=== PATIENT | female | born 1945 | race Caucasian/White ===

== ENCOUNTER → 2019-05-07 14:42 | Outpatient (BNVA) | payer MEDICARE, OTHER, SELFPAY | PROVIDERS: Family Provider Family Medicine; PCP Family Medicine; Visit Provider Internal Medicine Rheumatology | DX: M05.9 Rheumatoid arthritis with rheumatoid factor, unspecified (principal); M17.0 Bilateral primary osteoarthritis of knee; Z79.899 Other long term (current) drug therapy; M19.041 Primary osteoarthritis, right hand; M19.042 Primary osteoarthritis, left hand; E11.9 Type 2 diabetes mellitus without complications | CPT/HCPCS: 99214 ==

== ENCOUNTER → 2019-06-05 09:41 | Outpatient (BNVA) | payer MEDICARE, OTHER, SELFPAY | PROVIDERS: Family Provider Family Medicine; PCP Nurse Practitioner Family; Visit Provider Internal Medicine Rheumatology | DX: M05.9 Rheumatoid arthritis with rheumatoid factor, unspecified (principal); M15.4 Erosive (osteo)arthritis; Z79.899 Other long term (current) drug therapy; I10 Essential (primary) hypertension | CPT/HCPCS: 99214 ==

== ENCOUNTER 2020-02-23 06:00 | Outpatient (RCR) | payer MEDICARE, OTHER, SELFPAY | END 2020-03-08 23:59 | disposition home or self-care (01) | LOC: MPT 06:00 | PROVIDERS: Family Provider Family Medicine; PCP Nurse Practitioner Family; Referring Provider Student in an Organized Health Care Education/Training Program; Visit Provider Student in an Organized Health Care Education/Training Program | DX: Z47.1 Aftercare following joint replacement surgery (principal); Z96.651 Presence of right artificial knee joint | CPT/HCPCS: 97032; 97110; 97140; 97161; G0283 ==

== ENCOUNTER → 2021-09-19 09:52 | Outpatient (BNVA) | payer MEDICARE, OTHER, SELFPAY | PROVIDERS: Family Provider Family Medicine; PCP Nurse Practitioner Family; Visit Provider Internal Medicine Cardiovascular Disease | DX: I10 Essential (primary) hypertension (principal); E11.9 Type 2 diabetes mellitus without complications; M05.9 Rheumatoid arthritis with rheumatoid factor, unspecified; M17.0 Bilateral primary osteoarthritis of knee; L40.0 Psoriasis vulgaris; Z79.84 Long term (current) use of oral hypoglycemic drugs | CPT/HCPCS: 99204 ==

== ENCOUNTER → 2021-11-21 10:38 | Outpatient (BNVA) | payer MEDICARE, OTHER, SELFPAY | PROVIDERS: Family Provider Family Medicine; PCP Nurse Practitioner Family; Visit Provider Internal Medicine Cardiovascular Disease | DX: I10 Essential (primary) hypertension (principal); E11.8 Type 2 diabetes mellitus with unspecified complications; Z79.84 Long term (current) use of oral hypoglycemic drugs; M05.9 Rheumatoid arthritis with rheumatoid factor, unspecified; M17.0 Bilateral primary osteoarthritis of knee; L40.0 Psoriasis vulgaris | CPT/HCPCS: 99214 ==

== ENCOUNTER 2021-12-28 08:09 | Outpatient (CLI) | payer MEDICARE, OTHER, SELFPAY ==
--- NOTE | 2021-12-28 08:00 | USCV_ITS ---
Sidra Kline Age: 76 Gender: F : 1945 Exam Date: 12/28/2021 08:38 Ordering Phys: Gisela Davila MD ([email or web address]) Technologist: Exam [place] [facility] [place]: CHEST PAIN BP: 140 / 84 HR: 59 Rhythm: Sinus Technical Quality: Adequate MEASUREMENTS (Male / Female) Normal Values 2D ECHO LV Diastolic Diameter PLAX 3.1 cm 4.2 - 5.9 / 3.9 - 5.3 cm LV Systolic Diameter PLAX 2.0 cm IVS Diastolic Thickness 1.8 cm 0.6 - 1.0 / 0.6 - 0.9 cm IVS Systolic Thickness 1.7 cm LVPW Diastolic Thickness 1.8 cm 0.6 - 1.0 / 0.6 - 0.9 cm LVPW Systolic Thickness 2.0 cm LVOT Diameter 2.0 cm LV Ejection Fraction 2D Teich 67.0 % LV Ejection Fraction MOD 2C 63.9 % LV Ejection Fraction 2C AL 66.3 % LA Diameter 3.7 cm IVC Diameter 1.0 cm M-MODE Aortic Annulus Diameter 3.3 cm LA Ao Ratio MM 1.2 MV E Point Septal Separation 0.9 cm DOPPLER AV Peak Velocity 172.0 cm/s LVOT Peak Velocity 121.0 cm/s AV Area Cont Eq vti 2.1 cm squared AV Area Cont Eq pk 2.3 cm squared MV Area PHT 5.0 cm squared Mitral E to A Ratio 0.9 MV E' Velocity 52.0 cm/s Mitral E to MV E' Ratio 12.7 Mitral E to LV E' Lateral Ratio 13.2 Mitral E to LV E' Septal Ratio 12.3 TR Peak Velocity 364.3 cm/s TR Peak Gradient 53.1 mmHg TV Peak E Velocity 100.0 cm/s Right Atrial Pressure 3.0 mmHg Pulmonary Artery Systolic Pressu 56.1 mmHg RV Acceleration Time 0.1 s FINDINGS Left Ventricle Normal left ventricular size and systolic function with no regional wall motion abnormalities. Left ventricular ejection fraction is estimated at 65 %. Normal diastolic function. Right Ventricle Normal right ventricular size and systolic function. Right ventricular systolic pressure 30 mmHg. Right Atrium Normal right atrial size. Left Atrium Normal left atrial size. Mitral Valve Mildly thickened mitral valve. No mitral valve stenosis. Trace mitral valve regurgitation. Aortic Valve Aortic valve not well visualized. No aortic valve stenosis. No aortic valve regurgitation. Tricuspid Valve Structurally normal tricuspid valve. Mild tricuspid valve regurgitation. Pulmonic Valve Structurally normal pulmonic valve. No pulmonary valve stenosis. No pulmonary valve regurgitation. Pericardium No pericardial effusion. Aorta Normal size aortic root. IVC Normal IVC dimension with >50% respiratory change of the inferior vena cava. CONCLUSIONS 1. Normal left ventricular size and systolic function with no regional wall motion abnormalities. Left ventricular ejection fraction is estimated at 65 %. Normal diastolic function. 2. Normal right ventricular size and systolic function. 3. Mild tricuspid valve regurgitation. 4. Pulmonary artery pressure estimated at 30 mmHg. 5. No prior similar studies to compare. Gisela Davila MD (Electronically Signed) Final Date: 29 December 2021 12:10 S
== END 2021-12-28 08:10 | disposition home or self-care (01) ==
LOC: RAD 08:13
PROVIDERS: PCP Nurse Practitioner Family; Visit Provider Internal Medicine Cardiovascular Disease
DX: R06.02 Shortness of breath (principal); R07.9 Chest pain, unspecified; I07.1 Rheumatic tricuspid insufficiency
CPT/HCPCS: 93306

== ENCOUNTER → 2022-05-22 10:56 | Outpatient (BNVA) | payer MEDICARE, OTHER, SELFPAY | PROVIDERS: PCP Nurse Practitioner Family; Visit Provider Internal Medicine Cardiovascular Disease | DX: I10 Essential (primary) hypertension (principal) | CPT/HCPCS: 99214; Q3014 ==

== ENCOUNTER → 2022-08-15 09:23 | Outpatient (BNVA) | payer MEDICARE, OTHER, SELFPAY | PROVIDERS: PCP Nurse Practitioner Family; Visit Provider Nurse Practitioner Family | DX: I96 Gangrene, not elsewhere classified (principal); L97.812 Non-pressure chronic ulcer of other part of right lower leg with fat layer exposed | CPT/HCPCS: 97597; 99213; A6212 ==

== ENCOUNTER → 2022-08-22 08:42 | Outpatient (BNVA) | payer MEDICARE, OTHER, SELFPAY | PROVIDERS: PCP Nurse Practitioner Family; Visit Provider Nurse Practitioner Family | DX: E11.622 Type 2 diabetes mellitus with other skin ulcer (principal); I96 Gangrene, not elsewhere classified; L97.819 Non-pressure chronic ulcer of other part of right lower leg with unspecified severity | CPT/HCPCS: 97597; A6212 ==

== ENCOUNTER → 2022-08-31 08:55 | Outpatient (BNVA) | payer MEDICARE, OTHER, SELFPAY | PROVIDERS: PCP Nurse Practitioner Family; Visit Provider Nurse Practitioner Family | DX: E11.622 Type 2 diabetes mellitus with other skin ulcer (principal); I96 Gangrene, not elsewhere classified; L97.919 Non-pressure chronic ulcer of unspecified part of right lower leg with unspecified severity | CPT/HCPCS: 97597; A6212 ==

== ENCOUNTER → 2022-09-07 09:53 | Outpatient (BNVA) | payer MEDICARE, OTHER, SELFPAY | PROVIDERS: PCP Nurse Practitioner Family; Visit Provider Nurse Practitioner Family | DX: I96 Gangrene, not elsewhere classified (principal); E11.622 Type 2 diabetes mellitus with other skin ulcer; L97.819 Non-pressure chronic ulcer of other part of right lower leg with unspecified severity | CPT/HCPCS: 97597; A6212 ==

== ENCOUNTER → 2022-09-14 09:42 | Outpatient (BNVA) | payer MEDICARE, OTHER, SELFPAY | PROVIDERS: PCP Nurse Practitioner Family; Visit Provider Nurse Practitioner Family | DX: I96 Gangrene, not elsewhere classified (principal); E11.622 Type 2 diabetes mellitus with other skin ulcer; L97.811 Non-pressure chronic ulcer of other part of right lower leg limited to breakdown of skin | CPT/HCPCS: 97597 ==

== ENCOUNTER → 2022-09-21 09:43 | Outpatient (BNVA) | payer MEDICARE, OTHER, SELFPAY | PROVIDERS: PCP Nurse Practitioner Family; Visit Provider Nurse Practitioner Family | DX: E11.52 Type 2 diabetes mellitus with diabetic peripheral angiopathy with gangrene (principal); L97.811 Non-pressure chronic ulcer of other part of right lower leg limited to breakdown of skin | CPT/HCPCS: 97597; A6212 ==

== ENCOUNTER → 2022-09-28 09:46 | Outpatient (BNVA) | payer MEDICARE, OTHER, SELFPAY | PROVIDERS: PCP Nurse Practitioner Family; Visit Provider Nurse Practitioner Family | DX: E11.52 Type 2 diabetes mellitus with diabetic peripheral angiopathy with gangrene (principal); L97.811 Non-pressure chronic ulcer of other part of right lower leg limited to breakdown of skin | CPT/HCPCS: 97597; A6210 ==

== ENCOUNTER → 2022-10-05 09:36 | Outpatient (BNVA) | payer MEDICARE, OTHER, SELFPAY | PROVIDERS: PCP Nurse Practitioner Family; Visit Provider Nurse Practitioner Family | DX: E11.52 Type 2 diabetes mellitus with diabetic peripheral angiopathy with gangrene (principal); L97.812 Non-pressure chronic ulcer of other part of right lower leg with fat layer exposed | CPT/HCPCS: 97597; A6213 ==

== ENCOUNTER → 2022-10-19 09:36 | Outpatient (BNVA) | payer MEDICARE, OTHER, SELFPAY | PROVIDERS: PCP Nurse Practitioner Family; Visit Provider Nurse Practitioner Family | DX: E11.52 Type 2 diabetes mellitus with diabetic peripheral angiopathy with gangrene (principal); L97.812 Non-pressure chronic ulcer of other part of right lower leg with fat layer exposed | CPT/HCPCS: 87070; 87075; 87077; 87186; 87205; 97597; A6021 ==

== ENCOUNTER → 2022-10-26 14:50 | Outpatient (BNVA) | payer MEDICARE, OTHER, SELFPAY | PROVIDERS: PCP Nurse Practitioner Family; Visit Provider Nurse Practitioner Family | DX: E11.52 Type 2 diabetes mellitus with diabetic peripheral angiopathy with gangrene (principal); L97.812 Non-pressure chronic ulcer of other part of right lower leg with fat layer exposed | CPT/HCPCS: 97597; A6210 ==

== ENCOUNTER → 2022-11-02 08:04 | Outpatient (BNVA) | payer MEDICARE, OTHER, SELFPAY | PROVIDERS: PCP Nurse Practitioner Family; Visit Provider Nurse Practitioner Family | DX: E11.52 Type 2 diabetes mellitus with diabetic peripheral angiopathy with gangrene (principal); L97.812 Non-pressure chronic ulcer of other part of right lower leg with fat layer exposed | CPT/HCPCS: 97597; A6212 ==

== ENCOUNTER → 2022-11-14 10:23 | Outpatient (BNVA) | payer MEDICARE, OTHER, SELFPAY | PROVIDERS: PCP Family Medicine; Visit Provider Internal Medicine | DX: M05.9 Rheumatoid arthritis with rheumatoid factor, unspecified; L40.0 Psoriasis vulgaris; R53.81 Other malaise; Z79.52 Long term (current) use of systemic steroids | CPT/HCPCS: 36415; 80053; 85025; 85651; 86140; 86480; 86704; 86803; 87340; 99214 ==

== ENCOUNTER → 2022-12-21 11:07 | Outpatient (BNVA) | payer MEDICARE, OTHER, SELFPAY | PROVIDERS: PCP Family Medicine; Visit Provider Internal Medicine | DX: M05.9 Rheumatoid arthritis with rheumatoid factor, unspecified (principal); L40.0 Psoriasis vulgaris; R53.81 Other malaise | CPT/HCPCS: 99214 ==

== ENCOUNTER 2022-12-26 12:52 | Emergency (ER) | payer MEDICARE, OTHER, SELFPAY ==
--- NOTE | 2022-12-26 13:02 | XRR_ITS ---
PROCEDURE INFORMATION: Exam: XR Left Knee Exam date and time: 12/26/2022 1:09 PM Age: 77 years old Clinical indication: Injury or trauma; Other: Pain after fall TECHNIQUE: Imaging protocol: Radiologic exam of the left knee. Views: 3 views. COMPARISON: MRI Leg w/wo LEFT [id number] 12/04/2017 9:37 AM FINDINGS: Bones/joints: There is a total knee replacement. No fracture. The prosthesis appears in good alignment. Soft tissues: Normal. Vasculature: There is a vascular stent possibly within the popliteal artery. Vascular calcifications. XR/XR knee LT 3V* [id number] IMPRESSION: Good alignment of the total knee replacement. No acute fracture.
--- NOTE | 2022-12-26 13:02 | CT_ITS ---
WS: [id number] CT HEAD TECHNIQUE: Noncontrast CT of the head obtained from the skullbase to the vertex. CLINICAL INFORMATION: fall COMPARISON: 08/22/2021 DLP: 1140 mgy/cm All CT scans at [facility] use at least one of these dose optimization techniques: automated e xposure control; mA and/or kV adjustment per patient size (includes targeted exams where dose is matc hed to clinical indication); or iterative reconstruction. FINDINGS: No evidence of intracranial hemorrhage or mass effect. Ventricular system and basal cisterns are campos nt. Mild small vessel changes with mild parenchymal volume loss. No extra-axial fluid collections. No evidence of mass or mass effect. Vascular calcification. IMPRESSION: 1. No evidence of intracranial hemorrhage or mass effect. 2. Mild small vessel changes. Mild parenchymal volume loss. 3. Intracranial vascular calcification. 4. Mild mucosal thickening in the paranasal sinuses. 5. No acute intracranial findings.
--- NOTE | 2022-12-26 13:02 | CT_ITS ---
WS: [id number] CT CERVICAL TRAUMA TECHNIQUE: Noncontrast CT of the cervical spine with coronal and sagittal reformatted images. CLINICAL INFORMATION: fall COMPARISON: None. DLP: [address] scans at [facility] use at least one of these dose optimization techniques: automated e xposure control; mA and/or kV adjustment per patient size (includes targeted exams where dose is matc hed to clinical indication); or iterative reconstruction. FINDINGS: Straightening of the normal cervical lordosis. Moderate spondylitic changes. Disc space narrowing wor se at C3-C4 C4-C5 and C5-C6. Disc osteophyte complex C4-5 with slight anterolisthesis and moderate to severe central canal stenosis. Moderate central canal stenosis C5-C6. No acute fractures. Normal prevertebral soft tissues. Mastoids air cells are well aerated. IMPRESSION: 1. No evidence of acute fracture or dislocation. 2. Disc osteophyte complex C4-5 with slight anterolisthesis and moderate to severe central canal earnest nosis. 3. Moderate spondylitic changes.
[2022-12-26 13:03] VITALS: BP 196/91; PULSE 68; RESP 18; TEMP 36.5; O2SAT 95
--- NOTE | 2022-12-26 13:09 | W.ED.FALL ---
HPI - Fall General: Chief Complaint: Fall Stated Complaint: Fall Time Seen by Provider: 12/26/22 12:57 Source: patient Mode of arrival: ambulatory Limitations: no limitations History of Present Illness: 77-year-old female is here by EMS she states that she fell out of the stool in her shower states she did hit her head has some left shoulder and left knee pain. She is unsure if she had loss of consciousness. She has mild neck pain as well. States she has had no vomiting rates her pain a 5 out of 10 currently Associated symptoms-after fall: Reports headache(s) and neck pain; Denies abdominal pain or chest pain Review of Systems Const: Denies: fever(s) or chills ENMT: Denies: throat pain or dental pain Card: Denies: chest pain Resp: Denies: dyspnea GI: Denies: abdominal pain, nausea, vomiting or diarrhea Musc: Reports: neck pain and extremity pain; Denies: back pain Skin/Breast: Denies: rash Neuro: Reports: headache(s) PFSH ED PFSH: Medical History Controlled diabetes mellitus High risk medication use History of DVT (deep vein thrombosis) HTN (hypertension) Osteoarthritis of hands, bilateral Osteoarthritis of knees, bilateral Other longterm (current) drug therapy Plaque psoriasis S/P angiogram of extremity Seropositive rheumatoid arthritis Solitary pulmonary nodule Surgical History H/O lumpectomy History of cataract extraction History of hysterectomy Hx of cholecystectomy S/P coronary angiogram S/P knee surgery Family History Father Hx of CABG Myocardial infarct Hypertension Stroke Diabetes Mother Cancer stomach CA Diabetes Social History Smoking and tobacco status: never smoked Physical Exam Const: COMMON NORMALS: no acute distress, patient oriented x3 and healthy appearing HENMT: COMMON NORMALS: normocephalic HEAD & SCALP: normocephalic OTHER: abrasion to forehead Eye: COMMON NORMALS: Equal, round and reactive pupils present and EOMs intact bilaterally PUPIL: Yes Equal, round and reactive pupils present Neck/C-Spine: COMMON NORMALS: full ROM and supple Chest: COMMONS NORMALS: normal inspection of the chest and normal palpation of entire chest wall Resp: COMMON NORMALS: normal respiratory effort, No retractions, No use of accessory muscles and clear to auscultation bilaterally AUSCULTATION: clear to auscultation bilaterally Cardio: COMMON NORMALS: regular rate, regular rhythm and No murmurs present (Cardio) RATE: regular rate RHYTHM: regular rhythm GI: COMMON NORMALS: Normal to inspection, nondistended, normoactive bowel sounds present, Soft to palpation, non-tender and no masses PALPATION: Yes Soft to palpation Extremity: NARRATIVE EXTREMITY EXAM: Slight tenderness over left knee and left shoulder no obvious deformity Neuro: COMMON NORMALS: patient oriented x3, moves all extremities and no focal motor deficits Psych: COMMON NORMALS: mental status grossly normal, Normal thought process present and cooperative THOUGHT PROCESS: Normal thought process present Skin: COMMON NORMALS: no rashes or lesions noted and no wounds GENERAL SKIN EXAM: no rashes or lesions noted Course Vital Signs: Vital signs: Vital Signs Temperature 97.7 F 12/26/22 13:03 Pulse Rate 65 12/26/22 13:20 Respiratory Rate 18 12/26/22 13:20 Blood Pressure 185/107 12/26/22 13:20 Pulse Oximetry 97 12/26/22 13:20 Oxygen Delivery Me thod Room Air 12/26/22 13:20 MDM - Fall Medical Decision Making Patient presents here after a fall with some left knee left shoulder and ankle pain along with closed head injury her imaging here is all normal blood works normal she had some weakness here I did offer admission but she states she wants to go home states she needs to take care of her I informed her if she has any worsening she is to return she understands agrees to plan. Medical Records I reviewed the patient's medical records. Lab Data I reviewed the patient's lab results. 12/26/22 13:20 12/26/22 13:20 Radiology Impressions Knee X-Ray 12/26/22 13:02 IMPRESSION: Good alignment of the total knee replacement. No acute fracture. Shoulder X-Ray 12/26/22 13:13 IMPRESSION: Inferior displacement of the humeral head without dislocation anteriorly or posteriorly. Laboratory Results WBC 6.00 10^3/uL (3.29-11.43) 12/26/22 13:20 RBC 4.14 10^6/uL (3.85-5.65) 12/26/22 13:20 Hgb 12.30 g/dL (11.27-16.99) 12/26/22 13:20 Hct 36.4 % (36-47) 12/26/22 13:20 MCV 87.9 fl (85-98) 12/26/22 13:20 MCH 29.7 pg (27-33) 12/26/22 13:20 MCHC 33.8 g/dL (30-55) 12/26/22 13:20 RDW 13.4 % (12.1-15.1) 12/26/22 13:20 Plt Count 129 10^3/cmm (157-399) L 12/26/22 13:20 MPV 11.0 fL (7.4-10.4) H 12/26/22 13:20 Neut % (Auto) 81.5 % 12/26/22 13:20 Lymph % (Auto) 10.0 % 12/26/22 13:20 [place] % (Auto) 6.5 % 12/26/22 13:20 Eos % (Auto) 1.2 % 12/26/22 13:20 Baso % (Auto) 0.5 % 12/26/22 13:20 Neut # (Auto) 4.89 10^3/uL (1.8-7.7) 12/26/22 13:20 Lymph # (Auto) 0.6 10^3/uL (0.8-4.8) L 12/26/22 13:20 [place] # (Auto) 0.4 10^3/uL (0.2-0.9) 12/26/22 13:20 Eos # (Auto) 0.1 10^3/uL (0.0-0.8) 12/26/22 13:20 Baso # (Auto) 0.0 10^3/uL (0.0-0.1) 12/26/22 13:20 Nucleated RBC % (auto) 0 % 12/26/22 13:20 Nucleated RBCs # 0.0 /100WBC 12/26/22 13:20 Sodium 134 mmol/L (136-145) L 12/26/22 13:20 Potassium 3.8 mmol/L (3.5-5.1) 12/26/22 13:20 Chloride 100 mmol/L (98-107) 12/26/22 13:20 Carbon Dioxide 22 mmol/L (22-29) 12/26/22 13:20 Anion Gap 15.8 (5-19) 12/26/22 13:20 BUN 17 mg/dL (8-23) 12/26/22 13:20 Creatinine 0.8 mg/dL (0.5-0.9) 12/26/22 13:20 GFR Calculation Not Reportable 12/26/22 13:20 Glucose 174 mg/dL (65-115) H 12/26/22 13:20 Calculated Osmolality 284 mOsm/kg (285-295) L 12/26/22 13:20 Calcium 8.7 mg/dL (8.5-10.5) 12/26/22 13:20 Total Bilirubin 0.9 mg/dL (0.15-1.2) 12/26/22 13:20 AST 20 U/L (0-32) 12/26/22 13:20 ALT 15 U/L (0-33) 12/26/22 13:20 Alkaline Phosphatase 55 U/L (35-105) 12/26/22 13:20 Troponin T Baseline 18 ng/L (0-10) H 12/26/22 13:20 Troponin T 120 Minute 17.96 ng/L (0-10) H 12/26/22 15:20 Delta Troponin T -0.04 ABS# (0-10) L 12/26/22 15:20 Total Protein 6.9 g/dL (6.6-8.7) 12/26/22 13:20 Albumin 4.0 g/dL (3.5-5.2) 12/26/22 13:20 Globulin 2.9 g/dL (1.3-4.6) 12/26/22 13:20 All radiology interpretation(s) finalized by discharge Discharge Plan Discharge Patient Disposition: Home Clinical Impression: Fall, Contusion, Head injury Condition: Stable Prescriptions: No Action clonidine HCl 0.1 mg tablet 0.1 mg PO Q6H PRN (Reason: unknown) metformin 500 mg tablet 500 mg PO BID acetaminophen 325 mg capsule 650 mg PO QID PRN (Reason: Pain) tramadol 50 mg tablet 50 mg PO DAILY PRN (Reason: Pain) diclofenac sodium [Voltaren Arthritis Pain] 1 % gel 4 g topical QID Qty: 100 2RF Rx Instructions: apply to single knee, ankle, foot; for foot includes sole/toes/top of foot celecoxib [Celebrex] 100 mg capsule 100 mg PO BID Qty: 60 3RF doxycycline hyclate 100 mg capsule 100 mg PO BID Qty: 14 0RF Otezla Starter 10 mg (4)-20 mg (4)-30 mg (47) tablets,dose pack See Rx Instructions PO PER PKG DIR Qty: 55 0RF Rx Instructions: PO PER PKG DIR aspirin [Adult Low Dose Aspirin] 81 mg tablet,delayed release (DR/EC) 81 mg PO DAILY losartan 50 mg tablet 50 mg PO BID carvedilol 12.5 mg tablet 12.5 mg PO BID Qty: 180 2RF prednisone 5 mg tablet 5 mg PO DAILY Discharge Orders: Discharge ED (Routine); Ordered 12/26/22 Ordered By: Eren Whiting Referrals: Luis Antonio Weems [Primary Care Provider] - Discharge Diet: Advance as tolerated Discharge Activity: Resume usual activity Patient Instructions: Head Injury (ED), Contusion in Adults (ED) Coding Level of Care Code ED Talent Sourcing Specialist for Lonnie Noguera
--- NOTE | 2022-12-26 13:13 | XRR_ITS ---
PROCEDURE INFORMATION: Exam: XR Left Shoulder Exam date and time: 12/26/2022 1:14 PM Age: 77 years old Clinical indication: Injury or trauma; Other: Pain after fall TECHNIQUE: Imaging protocol: Radiologic exam of the left shoulder. Views: 2 or more views. COMPARISON: DX XR chest 1V [id number] 08/22/2021 6:10 PM FINDINGS: Bones/joints: Inferior displacement of the humeral head with respect to the glenoid is identified. However, on the Y-view there is no anterior posterior dislocation so I suspect this is inferiorly subluxed. There is a small area of calcific tendinitis. No fracture. Soft tissues: Normal. XR/XR shoulder LT min 2V* 13740 IMPRESSION: Inferior displacement of the humeral head without dislocation anteriorly or posteriorly.
[2022-12-26 13:20] VITALS: BP 185/107; PULSE 65; RESP 18; O2SAT 97
[2022-12-26 13:33] LABS: Basophils % 0.5 %; Eosinophils # 0.1 10^3/uL (0.0-0.8); Eosinophils % 1.2 %; Hematocrit 36.4 % (36-47); Lymphocytes # 0.6 10^3/uL (0.8-4.8); Mean Corpuscular HGB Conc 33.8 g/dL (30-55); Mean Corpuscular Hemoglobin 29.7 pg (27-33); Mean Corpuscular Volume 87.9 fl (85-98); Monocytes # 0.4 10^3/uL (0.2-0.9); Monocytes % 6.5 %; Neutrophils # 4.89 10^3/uL (1.8-7.7); Neutrophils % 81.5 %; Nucleated Red Blood Cells % 0 %; Platelet Count 129 10^3/cmm (157-399); Red Blood Count 4.14 10^6/uL (3.85-5.65); Red Cell Distribution Width 13.4 % (12.1-15.1)
[2022-12-26 13:47] LABS: Alanine Aminotransferase 15 U/L (0-33); Alkaline Phosphatase 55 U/L (35-105); Anion Gap 15.8 (5-19); Aspartate Amino Transferase 20 U/L (0-32); Blood Urea Nitrogen 17 mg/dL (8-23); Calcium 8.7 mg/dL (8.5-10.5); Carbon Dioxide 22 mmol/L (22-29); Chloride 100 mmol/L (98-107); Creatinine Clr Calc Pharmacy 54.1275; Globulin 2.9 g/dL (1.3-4.6); Glucose 174 mg/dL (65-115); Osmolality Calculated 284 mOsm/kg (285-295); Potassium 3.8 mmol/L (3.5-5.1); Sodium 134 mmol/L (136-145); Total Bilirubin 0.9 mg/dL (0.15-1.2); Total Protein 6.9 g/dL (6.6-8.7)
--- NOTE | 2022-12-26 13:51 | ECG_ITS ---
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 Measurements Intervals [place] Rate: 59 P: 63 [place]: 151 QRS: 45 QRSD: 76 T: -55 QT: 452 QTc: 448 Interpretive Statements SINUS BRADYCARDIA POSSIBLE LEFT ATRIAL ENLARGEMENT [-0.1mV P-WAVE IN V1/V2] ST DEVIATION AND MARKED T-WAVE ABNORMALITY, CONSIDER ANTEROLATERAL ISCHEMIA [-0.5+ mV T-WAVE IN I/aVL/V3-V6] ST DEVIATION AND MODERATE T-WAVE ABNORMALITY, CONSIDER INFERIOR ISCHEMIA [-0.1+ mV T-WAVE IN II/aVF] No previous ECG available for comparison Electronically Signed On 12-26-2022 16:35:20 CDT by Jared Oakley M.D. [id number]
[2022-12-26] MEDS: ondansetron 2 mg/ML SDV 2 mL 4 MG IVP (14:15)
[2022-12-26] MEDS: sodium chloride 0.9% 1,000 ML 999 ML IV (14:15)
[2022-12-26] MEDS: morphine 4 mg/mL SDV 1 mL IVP (14:15)
[2022-12-26] MEDS: hyDRALAzine 20 mg/mL INJ 1 mL 10 MG IVP (14:25)
[2022-12-26 15:05] LABS: Troponin(5th) Baseline 18 ng/L (0-10)
[2022-12-26 15:47] LABS: Troponin 5 2HR 17.96 ng/L (0-10)
[2022-12-26 15:49] LABS: Troponin 5 2HR Delta -0.04 ABS# (0-10)
--- NOTE | 2022-12-26 15:54 | XRR_ITS ---
PROCEDURE INFORMATION: Exam: XR Left Ankle Exam date and time: 12/26/2022 3:57 PM Age: 77 years old Clinical indication: Patient HX: Left ankle pain and swelling; Previous left knee surg; Additional info: Fall TECHNIQUE: Imaging protocol: Radiologic exam of the left ankle. Views: 3 or more views. COMPARISON: MRI Leg w/wo LEFT [id number] 12/04/2017 9:37 AM FINDINGS: Bones/joints: Calcaneal spur. Mild arthritic changes at the tibiotalar joint. No fracture, dislocation or subluxation. Soft tissues: Normal. Vasculature: Vascular calcifications. XR/XR ankle LT min 3V* 11094 IMPRESSION: No acute findings.
--- NOTE | 2022-12-26 16:13 | ECG_ITS ---
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 Measurements Intervals [place] Rate: 80 P: 63 [place]: 153 QRS: 62 QRSD: 74 T: -67 QT: 397 QTc: 458 Interpretive Statements SINUS RHYTHM POSSIBLE LEFT ATRIAL ENLARGEMENT [-0.1mV P-WAVE IN V1/V2] ST DEVIATION AND MODERATE T-WAVE ABNORMALITY, CONSIDER ANTEROLATERAL ISCHEMIA [-0.1+ mV T-WAVE IN V3-V6] ST DEVIATION AND MODERATE T-WAVE ABNORMALITY, CONSIDER INFERIOR ISCHEMIA [-0.1+ mV T-WAVE IN II/aVF] Compared to ECG 12/26/2022 13:54:43 Sinus bradycardia no longer present T-wave abnormality still present Possible ischemia still present Electronically Signed On 12-26-2022 16:36:47 CDT by Jared Oakley M.D. [id number]
== END 2022-12-26 16:40 | disposition home or self-care (01) ==
PROVIDERS: Emergency Provider Emergency Medicine; PCP Family Medicine
DX: S09.8XXA Other specified injuries of head, initial encounter (principal); S00.81XA Abrasion of other part of head, initial encounter; E11.9 Type 2 diabetes mellitus without complications; I10 Essential (primary) hypertension; W07.XXXA Fall from chair, initial encounter
CPT/HCPCS: 36415; 70450; 72125; 73030; 73562; 73610; 80053; 84484; 85025; 93005; 96374; 96375; 99285; J0360; J2270; J2405; J7030

== ENCOUNTER → 2023-02-20 08:54 | Outpatient (BNVA) | payer MEDICARE, OTHER, SELFPAY | PROVIDERS: PCP Family Medicine; Visit Provider Nurse Practitioner Family | DX: I10 Essential (primary) hypertension (principal) | CPT/HCPCS: 99213 ==

== ENCOUNTER → 2023-03-13 10:18 | Outpatient (BNVA) | payer MEDICARE, OTHER, SELFPAY | PROVIDERS: PCP Family Medicine; Visit Provider Internal Medicine Cardiovascular Disease | DX: I10 Essential (primary) hypertension (principal) | CPT/HCPCS: 99214 ==

== ENCOUNTER → 2023-03-22 10:17 | Outpatient (BNVA) | payer MEDICARE, OTHER, SELFPAY | PROVIDERS: PCP Family Medicine; Visit Provider Internal Medicine | DX: M05.9 Rheumatoid arthritis with rheumatoid factor, unspecified (principal); L40.0 Psoriasis vulgaris; R53.81 Other malaise | CPT/HCPCS: 99214 ==

== ENCOUNTER → 2023-05-08 13:30 | Outpatient (BNVA) | payer MEDICARE, OTHER, SELFPAY | PROVIDERS: PCP Family Medicine; Visit Provider Internal Medicine | DX: I10 Essential (primary) hypertension (principal); E11.9 Type 2 diabetes mellitus without complications; M05.9 Rheumatoid arthritis with rheumatoid factor, unspecified; M17.0 Bilateral primary osteoarthritis of knee; L40.0 Psoriasis vulgaris; Z79.84 Long term (current) use of oral hypoglycemic drugs | CPT/HCPCS: 99214 ==

== ENCOUNTER → 2023-07-31 10:06 | Outpatient (BNVA) | payer MEDICARE, OTHER, SELFPAY | PROVIDERS: PCP Family Medicine; Visit Provider Internal Medicine Rheumatology | DX: Z79.899 Other long term (current) drug therapy (principal); M05.9 Rheumatoid arthritis with rheumatoid factor, unspecified | CPT/HCPCS: 36415; 73130; 73630; 80076; 82565; 85025; 86140; 99214 ==

== ENCOUNTER 2023-09-06 08:30 | Oncology outpatient (recurring) (ONCR) | payer MEDICARE, OTHER, SELFPAY ==
[2023-08-23] VITALS (8 sets, daily range): BP systolic 155–172; BP diastolic 75–86; PULSE 57–85; RESP 16; TEMP 36.3–36.8; O2SAT 93–98
[2023-08-23] MEDS: acetaminophen 325 mg Tablet 650 MG PO (09:14)
[2023-08-23] MEDS: methylPREDNISolone sod succ 40 mg/mL INJ IVP (09:14)
[2023-08-23] MEDS: sodium chloride 0.9% 250 ML 75 ML IV (09:15)
[2023-08-23] MEDS: INFLIXIMAB ABDA IV (09:45)
[2023-08-23] MEDS: SODIUM CHLORIDE 0.9% IV (09:45)
[2023-09-06] VITALS (8 sets, daily range): BP systolic 169–203; BP diastolic 83–93; PULSE 54–59; RESP 16–18; TEMP 35.9–36.6; O2SAT 96–97
--- NOTE | 2023-09-06 08:58 | PC.NURSE ---
patient states she has issues with blood pressure and has prn blood pressure meds with her, willl recheck to see if needed.
[2023-09-06] MEDS: methylPREDNISolone sod succ 40 mg/mL INJ IVP (09:21)
[2023-09-06] MEDS: acetaminophen 325 mg Tablet 650 MG PO (09:21)
[2023-09-06] MEDS: sodium chloride 0.9% (100 ml) 100 ML 75 ML (09:24)
[2023-09-06] MEDS: INFLIXIMAB ABDA IV (09:31)
[2023-09-06] MEDS: SODIUM CHLORIDE 0.9% IV (09:31)
== END 2023-09-07 23:59 | disposition home or self-care (01) ==
PROVIDERS: PCP Family Medicine; Visit Provider Internal Medicine Medical Oncology
DX: Z53.9 Procedure and treatment not carried out, unspecified reason (principal); M05.9 Rheumatoid arthritis with rheumatoid factor, unspecified
CPT/HCPCS: 96375; 96413; 96415; A4222; J2919; J7050; Q5104

== ENCOUNTER 2023-10-04 08:11 | Oncology outpatient (recurring) (ONCR) | payer MEDICARE, OTHER, SELFPAY ==
[2023-10-04] VITALS (8 sets, daily range): BP systolic 160–203; BP diastolic 71–96; PULSE 55–73; RESP 18; TEMP 36.4–36.9; O2SAT 95–98
--- NOTE | 2023-10-04 08:23 | PC.NURSE ---
chronic high BP patient has medication with her to take.
[2023-10-04] MEDS: sodium chloride 0.9% 250 ML 75 ML IV (08:37)
[2023-10-04 08:38] LABS: Basophils # 0.1 10^3/uL (0.0-0.1); Basophils % 0.6 %; Eosinophils # 0.2 10^3/uL (0.0-0.8); Eosinophils % 2.2 %; Hematocrit 39.2 % (36-47); Lymphocytes # 1.2 10^3/uL (0.8-4.8); Mean Corpuscular HGB Conc 34.9 g/dL (30-55); Mean Corpuscular Hemoglobin 28.1 pg (27-33); Mean Corpuscular Volume 80.5 fl (85-98); Mean Platelet Volume 10.7 fL (7.4-10.4); Monocytes # 0.7 10^3/uL (0.2-0.9); Monocytes % 8.8 %; Neutrophils # 5.99 10^3/uL (1.8-7.7); Neutrophils % 72.9 %; Nucleated Red Blood Cells % 0 %; Platelet Count 139 10^3/cmm (157-399); Red Blood Count 4.87 10^6/uL (3.85-5.65); Red Cell Distribution Width 14.6 % (12.1-15.1); White Blood Count 8.21 10^3/uL (3.29-11.43)
[2023-10-04] MEDS: acetaminophen 325 mg Tablet 650 MG PO (08:38)
[2023-10-04] MEDS: methylPREDNISolone sod succ 40 mg/mL INJ IVP (08:38)
[2023-10-04 08:58] LABS: Alanine Aminotransferase 18 U/L (0-33); Albumin Level 4.1 g/dL (3.5-5.2); Alkaline Phosphatase 72 U/L (35-105); Aspartate Amino Transferase 21 U/L (0-32); Globulin 3.8 g/dL (1.3-4.6); Total Bilirubin 0.7 mg/dL (0.15-1.2); Total Protein 7.9 g/dL (6.6-8.7)
[2023-10-04] MEDS: INFLIXIMAB ABDA IV (09:03)
[2023-10-04] MEDS: SODIUM CHLORIDE 0.9% IV (09:03)
--- NOTE | 2023-10-04 11:38 | PC.NURSE ---
patient is about due for her BP med and has increased back pain, monitors BP at home and states she will take pain med when she gets home for chronic back pain.
== END 2023-10-07 23:59 | disposition home or self-care (01) ==
LOC: ONCMED 08:11
PROVIDERS: Internal Medicine Rheumatology; PCP Family Medicine; Visit Provider Internal Medicine Medical Oncology
DX: M05.9 Rheumatoid arthritis with rheumatoid factor, unspecified (principal); Z79.620 Long term (current) use of immunosuppressive biologic
CPT/HCPCS: 80076; 82565; 85025; 86140; 96375; 96413; 96415; J2919; J7050; Q5104

== ENCOUNTER → 2023-11-06 12:28 | Outpatient (BNVA) | payer MEDICARE, OTHER, SELFPAY | PROVIDERS: PCP Family Medicine; Visit Provider Internal Medicine | DX: I10 Essential (primary) hypertension (principal); E11.9 Type 2 diabetes mellitus without complications; M05.9 Rheumatoid arthritis with rheumatoid factor, unspecified; M17.0 Bilateral primary osteoarthritis of knee; L40.0 Psoriasis vulgaris; Z79.84 Long term (current) use of oral hypoglycemic drugs | CPT/HCPCS: 99214 ==

== ENCOUNTER 2023-12-03 09:59 | Oncology outpatient (recurring) (ONCR) | payer OTHER, SELFPAY ==
[2023-12-03] VITALS (9 sets, daily range): BP systolic 146–202; BP diastolic 71–95; PULSE 62–67; RESP 16; TEMP 36.3–36.6; O2SAT 96–98
--- NOTE | 2023-12-03 10:23 | PC.NURSE ---
Premedications 12/03/23 Patient stated she took Tylenol at 0800 this morning. Patient refused Benadryl stating she has to drive home and it makes me sleepy .
[2023-12-03 10:28] LABS: Basophils % 0.6 %; Eosinophils # 0.1 10^3/uL (0.0-0.8); Eosinophils % 1.9 %; Hematocrit 37.9 % (36-47); Lymphocytes # 1.2 10^3/uL (0.8-4.8); Lymphocytes % 16.7 %; Mean Corpuscular HGB Conc 34.6 g/dL (30-55); Mean Corpuscular Hemoglobin 29.4 pg (27-33); Mean Platelet Volume 11.2 fL (7.4-10.4); Monocytes # 0.5 10^3/uL (0.2-0.9); Monocytes % 7.7 %; Neutrophils % 72.7 %; Nucleated Red Blood Cells % 0 %; Platelet Count 116 10^3/cmm (157-399); Red Blood Count 4.46 10^6/uL (3.85-5.65); Red Cell Distribution Width 13.5 % (12.1-15.1); White Blood Count 7.01 10^3/uL (3.29-11.43)
[2023-12-03] MEDS: sodium chloride 0.9% 250 ML 75 ML IV (10:38)
[2023-12-03] MEDS: methylPREDNISolone sod succ 40 mg/mL INJ IVP (10:38)
[2023-12-03 10:42] LABS: Alanine Aminotransferase 20 U/L (0-33); Albumin Level 3.8 g/dL (3.5-5.2); Alkaline Phosphatase 59 U/L (35-105); Aspartate Amino Transferase 21 U/L (0-32); Creatinine Clr Calc Pharmacy 53.1022; Globulin 3.2 g/dL (1.3-4.6); Total Bilirubin 0.7 mg/dL (0.15-1.2)
[2023-12-03] MEDS: INFLIXIMAB ABDA IV (11:45)
[2023-12-03] MEDS: SODIUM CHLORIDE 0.9% IV (11:45)
== END 2023-12-08 23:59 | disposition home or self-care (01) ==
PROVIDERS: Internal Medicine Rheumatology; PCP Family Medicine; Visit Provider Internal Medicine Medical Oncology
DX: M05.9 Rheumatoid arthritis with rheumatoid factor, unspecified (principal); Z79.899 Other long term (current) drug therapy
CPT/HCPCS: 80076; 82565; 85025; 86140; 96375; 96413; 96415; A4222; J2919; J7050; Q5104

== ENCOUNTER 2023-12-03 09:59 | Oncology outpatient (recurring) (ONCR) | payer OTHER, SELFPAY | END 2023-12-08 23:59 | disposition home or self-care (01) | PROVIDERS: PCP Family Medicine; Visit Provider Internal Medicine Medical Oncology | DX: Z53.9 Procedure and treatment not carried out, unspecified reason (principal) ==

== ENCOUNTER → 2023-12-12 10:12 | Outpatient (BNVA) | payer MEDICARE, OTHER, SELFPAY | PROVIDERS: PCP Family Medicine; Visit Provider Internal Medicine Rheumatology | DX: M05.9 Rheumatoid arthritis with rheumatoid factor, unspecified (principal); L40.0 Psoriasis vulgaris; M15.4 Erosive (osteo)arthritis; Z79.899 Other long term (current) drug therapy; Z71.85 Encounter for immunization safety counseling | CPT/HCPCS: 99214 ==

== ENCOUNTER → 2024-05-07 13:18 | Outpatient (BNVA) | payer MEDICARE, OTHER, SELFPAY | PROVIDERS: PCP Family Medicine; Visit Provider Internal Medicine | DX: I10 Essential (primary) hypertension (principal) | CPT/HCPCS: 99214 ==

== ENCOUNTER 2024-06-20 09:05 | Oncology outpatient (recurring) (ONCR) | payer MEDICARE, OTHER, SELFPAY ==
--- NOTE | 2024-06-20 09:09 | USCV_ITS ---
Sidra Kline Age: 79 Gender: F : 1945 Exam Date: 06/20/2024 09:22 Ordering Phys: Jared Oakley M.D ([email or web address]) Technologist: CONRADO [place]am [place] [facility] [place]: HTN Aortic Velocity @ SMA (cm/s) 82.8 RIGHT KIDNEY LEFT KIDNEY Velocity (cm/s) Velocity (cm/s) Sys/Figueroa Sys/Figueroa Resistive Index Resistive Index 37.0 / 8.7 0.77 Proximal Renal Artery 33.1 / 7.8 0.77 48.2 / 15.2 0.68 Mid Renal Artery 90.0 / 23.3 0.74 58.0 / 16.3 0.77 Distal Renal Artery 88.0 / 25.3 0.71 30.0 / 7.4 0.75 Hilar 41.6 / 6.7 0.84 11.9 / 5.2 0.56 Upper Pole 27.6 / 9.6 0.65 19.1 / 5.3 0.72 Mid Pole 30.4 / 10.4 0.66 18.4 / 4.3 0.77 Lower Pole 23.5 / 6.0 0.74 0.70 Renal Aortic Ratio 1.09 Accleration Time (sec) 184.60 Hilar 184.60 44.20 Upper Pole 105.50 50.70 Mid Pole 119.00 60.30 Lower Pole 58.80 7.9 Kidney Length (cm) 8.9 CONCLUSIONS No sonographic evidence of hemodynamically significant renal artery stenosis bilaterally. No hydronephrosis Sanjiv Tomas MD (Electronically Signed) Final Date: 20 June 2024 12:51 S
== END 2024-07-07 23:59 | disposition home or self-care (01) ==
LOC: RAD 09:06 → ONCMED 06-23 09:13
PROVIDERS: PCP Nurse Practitioner Family; Visit Provider Internal Medicine
DX: I10 Essential (primary) hypertension (principal)
CPT/HCPCS: 93975

== ENCOUNTER → 2024-08-13 11:18 | Outpatient (BNVA) | payer MEDICARE, OTHER, SELFPAY | PROVIDERS: PCP Nurse Practitioner Family; Visit Provider Internal Medicine Rheumatology | DX: M05.9 Rheumatoid arthritis with rheumatoid factor, unspecified (principal); L40.0 Psoriasis vulgaris; M15.4 Erosive (osteo)arthritis; Z79.899 Other long term (current) drug therapy; Z71.85 Encounter for immunization safety counseling | CPT/HCPCS: 36415; 80076; 82565; 85025; 85651; 86140; 99214 ==

== ENCOUNTER → 2024-09-11 10:04 | Outpatient (BNVA) | payer MEDICARE, OTHER, SELFPAY | PROVIDERS: PCP Nurse Practitioner Family; Visit Provider Student in an Organized Health Care Education/Training Program | DX: R19.4 Change in bowel habit (principal) | CPT/HCPCS: 99204 ==

== ENCOUNTER 2024-09-23 08:14 | Day surgery (SDC) | payer MEDICARE, OTHER, SELFPAY ==
[2024-09-23 08:30] VITALS: BP 141/74; PULSE 67; RESP 16; TEMP 36.8; O2SAT 95
[2024-09-23] MEDS: sodium chloride 0.9% 1,000 ML 15 ML IV (08:35)
--- NOTE | 2024-09-23 09:36 | P.ANESASSM_ITS ---
Pre-Anesthetic Assessment Height/Weight: Height 1.63 m Temp Pulse Resp BP Pulse Ox O2 Del Method 98.2 F 67 16 141/74 95 Room Air 09/23/24 08:30 09/23/24 08:30 09/23/24 08:30 09/23/24 08:30 09/23/24 08:30 09/23/24 08:30 Preop Diagnosis: screening Operation Date: 09/23/24 10:00 Proposed Procedures p Colonoscopy 54124 G0105, R19.4(Not Applicable) - Rickie Goel MD Familial anesthetic complications: PONV Was Beta Neida taken within 24 hours: Yes Was Clonidine taken within 24 hours: N/A Last intake: Intake Last Liquid Date 09/23/24 Last Liquid Time 06:00 Last Solid Date 09/21/24 Last Solid Time 15:00 Social No alcohol and No tobacco Exam alert, oriented x 3 and clear to auscultation bilaterally Airway Mallampati: Class II Dentition: false History/ROS No significant history except as noted Pulmonary None reported CV/HEM Deep Vein Thrombosis (following knee replacement, takes aspirin ) and Hypertension None reported Hepatic None reported GI None reported Metabolic Diabetes Mellitus and Hyperlipidemia [facility] [place] [place] Osteoarthritis/DJD and Rheumatoid Arthritis Neuropsych None reported Anesthetic Plan ASA status: 3 Anesthesia: Anesthesia Evaluation and MAC Risk of > 500 ml blood loss (7ml/kg in children): No Medications/Allergies Home Medications ?Medication ?Instructions ?Recorded ?Confirmed ?Last Taken ?Type aspirin 81 mg tablet,delayed 81 mg PO DAILY 06/21/22 0 09/18/24 09/17/24 History release (Adult Low Dose Aspirin) losartan 50 mg tablet 50 mg PO BID 06/21/2209/18/24 History diclofenac sodium 1 % topical gel 4 g topical QID #100 grams 12/21/22 09/18/24 09/18/24 Rx (Voltaren Arthritis Pain) carvedilol 25 mg tablet 25 mg PO BID #180 tabs 11/0509/18/24 09/23/24 Rx hydrochlorothiazide 25 mg tablet 25 mg PO DAILY #90 ta bs 11/30/23 09/18/24 09/23/24 Rx acetaminophen 650 mg 650 mg PO Q12H 05/07/2409/0709/17/24 History tablet,extended release (Tylenol Arthritis Pain) amlodipine 10 mg tablet 10 mg PO DAILY #90 tabs 04/1009/18/24 09/18/24 Rx hydralazine 10 mg tablet 10 mg PO QID #360 tabs 05/2309/18/24 09/16/24 Rx prednisone 5 mg tablet 5 mg PO DAILY #90 tabs 08/1309/18/24 09/18/24 Rx tramadol 50 mg tablet 50 mg PO DAILY PRN pain (sca le 08/13/24 09/18/24 09/18/24 Rx score 7-10) #60 tabs clonidine HCl 0.1 mg tablet 0.1 mg PO TID PRN Hyperten deejay 09/11/24 09/18/24 Unknown History tocilizumab 162 mg/0.9 mL 162 mg (0.9 mL) SUBCUT Q7D # 3.6 mL 09/18/24 09/22/24 Unknown Rx subcutaneous pen injector (Actemra ACTPen) Allergies Allergy/AdvReac Type Severity Reaction Status Date / Time lisinopril Allergy Unknown Verified 09/23/24 08:26 Current Medications Generic Name Dose Route Start Last Admin Trade Name Freq PRN Reason Stop Dose Admin Sodium Chloride 1,000 mls @ 15 mls/hr 09/23/24 08:25 09/23/24 08:35 Sodium Chloride 0.9% IV 09/24/24 08:24 15 mls/hr .Q24H PRN Administration COLONOSCOPY FLUIDS PFSH Anesthesia Medical History Immunization counseling Erosive osteoarthritis of both hands Solitary pulmonary nodule Plaque psoriasis HTN (hypertension) History of DVT (deep vein thrombosis) S/P angiogram of extremity Osteoarthritis of knees, bilateral Osteoarthritis of hands, bilateral High risk medication use Seropositive rheumatoid arthritis Other chcf (current) drug therapy Controlled diabetes mellitus Surgical History (Updated 09/11/24 @ 10:20 by GALI Gonzalez) H/O lumpectomy S/P knee surgery S/P coronary angiogram History of hysterectomy Hx of cholecystectomy History of cataract extraction Family History Father Hx of CABG Myocardial infarct Hypertension Stroke Diabetes Mother Cancer stomach CA Diabetes Social History Smoking and tobacco/nicotine status: never used tobacco/nicotine Data Anesthesia Cardiac Studies: Echocardiogram 12/28/21
--- NOTE | 2024-09-23 09:39 | W.PM.OPSUD ---
Surgery/Procedure H&P Update DATE OF PROCEDURE: September 23, 2024 DATE H&P PERFORMED: 09/11/24 H&P UPDATE INFORMATION: I have reviewed H&P completed within last 30 days, I have examined patient prior to procedure and No changes to prior documentation PREOP DIAGNOSIS: screening PLANNED PROCEDURE: Operation Date: 09/23/24 10:00 Proposed Procedures p Colonoscopy 33704 G0105, R19.4(Not Applicable) - Rickie Goel MD
[2024-09-23 10:05] VITALS: BP 108/58; PULSE 61; RESP 12; TEMP 36.1; O2SAT 95
[2024-09-23 10:22] VITALS: BP 122/72; PULSE 65; RESP 14; O2SAT 97
--- NOTE | 2024-09-23 11:00 | ANE.PACU2 ---
Inpatient post-anesthesia follow up: Airway intact: Yes Vital signs: Temperature 97 F Pulse Rate 65 Respiratory Rate 14 Blood Pressure 122/72 Pulse Oximetry 97 Oxygen Delivery Me thod Room Air Oxygen Flow Rate Fraction of Inspir ed Oxygen Hydration adequate: Yes Nausea and vomiting: No Pain level: 1 Mental status: Baseline
== END 2024-09-23 11:00 | disposition home or self-care (01) ==
PROVIDERS: PCP Nurse Practitioner Family; Visit Provider Student in an Organized Health Care Education/Training Program
PROC: 0DJD8ZZ Inspection of Lower Intestinal Tract, Via Natural or Artificial Opening Endoscopic (ICD-10-PCS; CPT 45378; principal; 2024-09-23 10:00)
DX: K57.30 Diverticulosis of large intestine without perforation or abscess without bleeding (principal); R19.4 Change in bowel habit; I10 Essential (primary) hypertension; E11.9 Type 2 diabetes mellitus without complications; M05.70 Rheumatoid arthritis with rheumatoid factor of unspecified site without organ or systems involvement; E78.5 Hyperlipidemia, unspecified; Z79.82 Long term (current) use of aspirin; Z79.899 Other long term (current) drug therapy; Z90.49 Acquired absence of other specified parts of digestive tract; Z86.718 Personal history of other venous thrombosis and embolism
CPT/HCPCS: 45378; J2704; J7030; J9999

== ENCOUNTER → 2024-11-05 13:46 | Outpatient (BNVA) | payer MEDICARE, OTHER, SELFPAY | PROVIDERS: PCP Nurse Practitioner Family; Visit Provider Internal Medicine | DX: I10 Essential (primary) hypertension (principal); E11.9 Type 2 diabetes mellitus without complications; M05.9 Rheumatoid arthritis with rheumatoid factor, unspecified | CPT/HCPCS: 99214 ==

== ENCOUNTER → 2025-01-07 10:32 | Outpatient (BNVA) | payer MEDICARE, OTHER, SELFPAY | PROVIDERS: PCP Nurse Practitioner Family; Visit Provider Internal Medicine Rheumatology | DX: M05.9 Rheumatoid arthritis with rheumatoid factor, unspecified (principal); L40.0 Psoriasis vulgaris; M15.4 Erosive (osteo)arthritis; Z79.899 Other long term (current) drug therapy; Z71.85 Encounter for immunization safety counseling | CPT/HCPCS: 36415; 80076; 82565; 85025; 85651; 86140; 86480; 99214 ==

== ENCOUNTER 2025-01-13 14:08 | Outpatient (CLI) | payer MEDICARE, OTHER, SELFPAY ==
[2025-01-13 15:31] LABS: Blood Urea Nitrogen 23 mg/dL (8-23)
== END 2025-01-13 14:09 | disposition home or self-care (01) ==
LOC: LAB 14:12
PROVIDERS: PCP Nurse Practitioner Family; Visit Provider Internal Medicine Rheumatology
DX: Z79.899 Other long term (current) drug therapy (principal)
CPT/HCPCS: 36415; 82565; 84520